=== PATIENT | male | born 1960 | race Caucasian/White ===

== ENCOUNTER 2016-10-21 08:19 | Emergency (ER) | payer OTHER ==
[2016-10-21 09:00] VITALS: BP 117/78
--- NOTE | 2016-10-21 11:00 | UC ---
Demetra Ann Salem, scribed for RahatCelso castellanos MD on 10/21/16 at 0908 . Respiratory Complaint HPI - HPI Summary HPI Summary: In Room note: Patient is a 56 y/o male who presents to the with a cough for the past 3 weeks. He states that he came back from [place] approximately one month ago, vomited, and then developed a cough that is aggravated by talking or food intake. He denies wheezing, sore throat, or congestion, but reports fatigue and difficulty swallowing. He also reports increased frequency of GERD in recent years. Pt notes that sx have improved over the last few weeks. He states that sx is not necessary present when he first wakes up. He denies a hx of related sx or of asthma. Pt is a former smoker. note: VSS, afebrile, pulse ox:100. Nurses note: Developed a cough on the 28 of September after returning from [place]. Coughing occurs with talking, eating, and a deep breath. Its a dry kind of tickle cough. - History of Current Complaint Chief Complaint: UCRespiratory Stated Complaint: COUGH-ONGOING Time Seen by Provider: 10/21/16 08:59 Hx Obtained From: Patient Onset/Duration: Gradual Onset, Lasting Weeks, Still Present Timing: Intermittent Episodes Severity Initially: Moderate Severity Currently: Moderate Character: Cough: Nonproductive Aggravating Factors: Nothing - Food intake and talking. Alleviating Factors: Nothing Associated Signs And Symptoms: Positive: Negative. Negative: Wheezing - Allergies/Home Medications Allergies/Adverse Reactions: Allergies Allergy/AdvReac Type Severity Reaction Status Date / Time Penicillins Allergy Rash Verified 12/16/14 09:29 Home Medications: Home Medications NK [No Home Medications Reported] 10/21/16 [History Confirmed 10/21/16] PMH/Surg Hx/FS Hx/Imm Hx Endocrine History Of: Denies: Diabetes, Thyroid Disease Cardiovascular History Of: Denies: Cardiac Disorders, Hypertension, Pacemaker/ICD Respiratory History Of: Denies: COPD, Asthma GI/ History Of: Denies: Ulcer - Surgical History Surgical History: Yes Surgery Procedure, Year, and Place: 1979 [facility]. Colonoscopy - Family History Known Family History: Positive: Cardiac Disease - Social History Alcohol Use: Occasionally Substance Use Type: None Smoking Status (MU): Former Smoker Type: Cigarettes, Cigars When Did the Patient Quit Smoking/Using Tobacco: 7-8 years ago Review of Systems Constitutional: Fatigue ENT: Other - Difficulty swallowing. No sore throat. Respiratory: Cough, Other - No wheezing or congestion. Gastrointestinal: Vomiting - Resolved. All Other Systems Reviewed And Are Negative: Yes Physical Exam Triage Information Reviewed: Yes Appearance: Well-Appearing, No Pain Distress, Well-Nourished Vital Signs: Initial Vital Signs Temp 98.1 F 10/21/16 08:54 Pulse 72 10/21/16 08:54 Resp 18 10/21/16 08:54 BP 117/78 10/21/16 08:54 Pulse Ox 100 10/21/16 08:54 Vital Signs Reviewed: Yes Eyes: Positive: Conjunctiva Clear ENT: Positive: Hearing grossly normal, Pharynx normal, TMs normal. Negative: Muffled/hoarse voice Neck: Positive: Supple, No Lymphadenopathy Respiratory: Positive: Chest non-tender, Lungs clear, Normal breath sounds, No respiratory distress Cardiovascular: Positive: RRR, No Murmur Abdomen Description: Positive: Nontender, No Organomegaly, Soft Bowel Sounds: Positive: Present Musculoskeletal: Positive: Strength Intact Neurological: Positive: Alert Psychological: Positive: Age Appropriate Behavior Skin Exam: Other - BILATERAL VITILIGO. Skin: Negative: rashes UC Diagnostic Evaluation - Laboratory O2 Sat by Pulse Oximetry: 100 Respiratory Course/Dx - Course Course Of Treatment: Medications have been included in the original chart and reviewed. I discussed at length the pts cough and my suspicion that this is a resolving cold, but that it could be allergies, GERD, or local irritation. We decided on a plan that he would get OTC Zyrtec, Prilosec, and Mylanta, and use tea and honey and see if cough resolves without abx. I also expressed to him that this may get better on its own. Normal BP reading and no follow-up instructions required. - Differential Dx/Diagnosis Provider Diagnoses: Cough: resolving URI vs gastroesophageal reflux. Discharge - Discharge Plan Condition: Stable Disposition: HOME Patient Education Materials: Acute Bronchitis (ED), Gastroesophageal Reflux Disease (ED) Referrals: Megan Ha MD [Primary Care Provider] - Additional Instructions: WE DISCUSSED: You may have: 1. A cold that is getting better and will get better over the next 2-3 weeks. 2. An allergy. 3. Stomach acid causing irritation. Go to drugstore: 1. zyrtec or equivalent for allergy. This is a non sedating antihistamine. 2. prilosec or equivalent for stomach acid; you could start with Mylanta, which may do the job on its own. 3. Also, try some hot tea and honey before you eat. This may calm down the irritation in your throat area. 4. No antibiotic needed now. If this continues more than another 2 weeks without improvement or you develop new symptoms or temperature, re-check. Other suggestions: COUGH, CONGESTION of CHEST, SINUSES OR EARS: The most important goal is to liquefy all the phlegm and get it out of your head and chest. Any illness causing cough, congestion, sore throat or sinus discomfort can be helped by doing the following: STAND UNDER SHOWER STREAM TO LOOSEN SECRETIONS. STAY AWAY FROM ANY SMOKE OR IRRITANTS. WHAT ELSE CAN HELP RELIEVE YOUR SYMPTOMS: GENERAL TYPES OF MEDICINE THAT MAY HELP DECONGESTANTS: helps relieve stuffiness and clears sinuses. Pseudoephedrine ( Sudafed or generic) is effective but you need to ask the pharmacist for it because it may be kept behind the counter. ANTIHISTAMINES: are NOT helpful in many colds and flus because they can worsen sore throat, dry eyes and mouth and cause drowsiness. Examples are diphenhydramine, doxylamine and chlorpheniramine. They can help dry you out if you are having profuse, clear drainage from the nose. EXPECTORANTS: helps thin mucous in the nose and chest, making it easier to clear the fluid out. Expectorants are in most combination cough/cold remedies and should be taken with plenty of water. Guaifenesin is the most common expectorant and it comes in pill or liquid form. Mucinex is an extended release form of guaifenesin. COUGH SUPPRESANT: reduces the body's cough reflex. Dextromethorphan is in over the counter products, but sometimes narcotics such as codeine or hydrocodone are used to suppress cough. SPECIFIC MEDICATIONS: The most important goal is to liquefy all the phlegm and get it out of your head and chest: The following medicines (in prescription form or you can buy them without prescription) may help: To help with cough: DEXTROMETHORPHAN (Vicks, Robitussin, Nyquil and other brands) To help break up phlegm: GUAIFENESIN (Mucinex, Robitussin, other brands) To help clear congestion: PSEUDOEPHEDRINE (Sudafed, Dimetapp, other brands) TRY TO CLEAR NOSE: AFRIN NASAL SPRAY: 2-3 SPRAYS PER NOSTRIL, TWICE A DAY FOR TWO DAYS ONLY. USEFUL WAYS TO FEEL BETTER WITHOUT MEDICATIONS: STAND UNDER SHOWER STREAM TO LOOSEN SECRETIONS. USE A VAPORIZOR. STAY AWAY FROM ANY SMOKE OR IRRITANTS. USE SALINE NASAL SPRAY TO KEEP FLOW OF MUCOUS FROM NOSTRILS AND SINUSES. CONSIDER USING NETI POT TO HELP WITH ALLERGIES AND CONGESTION IN THE NOSE. USE THIS THREE TIMES A WEEK. YOU CAN GET THIS AT [employer] IN [place] OR VARIOUS DRUGSTORES. DRINK LOTS OF WARM FLUIDS USEFUL HOME REMEDIES: WARM WATER GARGLES, WITH TSP OF SALT PER 8 OUNCES OF WATER, GARGLE FOR A FEW SECONDS AND SPIT OUT; GARGLE AND SPIT OUT; EVERY THREE HOURS. AND/OR: WARM WATER OR TEA, HONEY AND LEMON; 2-3 CUPS A DAY. FOR SORE THROAT: KEEP THROAT MOIST WITH LOZENGES; TEA AND HONEY. USE WARM WATER GARGLES 3-4 TIMES A DAY. FOLLOW UP: RE-CHECK IN 1O DAYS, NEEDED, IF YOU ARE NOT IMPROVING. RETURN HERE OR SEE YOUR PHYSICIAN. RE-CHECK SOONER IF INCREASED PAIN OR TEMPERATURE. The documentation as recorded by the Demetra lozada Salem accurately reflects the service I personally performed and the decisions made by me, Celso Carty MD.
== END 2016-10-21 09:34 | disposition home or self-care (01) ==
LOC: UCEAST 08:19
DX: R05 Cough (principal); Z87.891 Personal history of nicotine dependence; K21.9 Gastro-esophageal reflux disease without esophagitis; Z88.0 Allergy status to penicillin
CPT/HCPCS: 99201; G0463